=== PATIENT | female | born 2000 | race American Indian/Alaskan Native ===

== ENCOUNTER 2022-03-08 17:05 | Emergency (ER) | payer SELFPAY ==
[2022-03-08 18:44] LABS: Basophils % (Auto) 0.9 % (0.0-1.8); Eosinophils % (Auto) 0.7 % (0.0-4.3); Hemoglobin 12.9 gm/dl (10.1-14.3); Lymphocytes # (Auto) 1.9 K/mm3 (1.2-5.4); Lymphocytes % (Auto) 40.2 % (13.4-35.0); Mean Corpuscular HGB Conc 33 % (30-34); Mean Corpuscular Volume 89 fl (79-97); Monocytes # (Auto) 0.3 K/mm3 (0.0-0.8); Monocytes % (Auto) 6.8 % (0.0-7.3); Platelet Count 257 K/mm3 (140-440); Red Cell Distribution Width 14.7 % (13.2-15.2)
[2022-03-08 18:53] LABS: BUN/Creatinine Ratio 14; Blood Urea Nitrogen 11 mg/dL (7-17); Calcium 9.9 mg/dL (8.4-10.2); Hemolysis Index 5
[2022-03-08] MEDS ORDERED: HALOPERIDOL LACTATE 5 MG/1 ML INJ IM PRN (23:49)
[2022-03-08] MEDS ORDERED: LORazepam 2 MG/ML VIAL IM PRN (23:49)
--- NOTE | 2022-03-08 23:50 | Emergency Department Report ---
ED General Adult HPI - General Chief complaint: Psych Stated complaint: MH/BIPOLAR Time Seen by Provider: 03/08/22 23:47 Source: patient Mode of arrival: Ambulatory Limitations: No Limitations - History of Present Illness Initial comments: The patient was evaluated in the emergency department for symptoms described in the history of present illness. He/she was evaluated in the context of the global COVID-19 pandemic, which necessitated consideration that the patient might be at risk for infection with the virus that causes COVID-19. Institutional protocols and algorithms that pertain to the evaluation of patients at risk for COVID-19 are in a state of rapid change based on information released by regulatory bodies including the CDC and federal and state organizations. These policies and algorithms were followed during the patient's care in the emergency department. Please note that these policies, procedures and recommendations changed on a rapid basis. This is a 21-year-old female who presents to the department today for psychiatric consultation and evaluation. She reports that at the moment, she is not currently homicidal or suicidal, that she is not experiencing hallucinations, and that she denies physical pain. Reportedly, she had made some comments about suicidality or homicidality prior to ER evaluation. As per nursing documentation : PATIENT REPORTS THAT SHE WAS AT WORK WHEN SHE STATES THAT SHE EXPERIENCES A "MANIC" EPISODE WHERE SHE VERBALLY ATTACKED ANOTHER EMPLOYEE AND VANDALIZED WORK FURNITURE. SHE REPORTS THAT NOTHING NOR THE PERSON TRIGGERED THE STATE OF RAGE, THAT IT IS SOMETHING THAT CAME ON AND WENT AWAY. AFTERWARDS ANOTHER EMPLOYEE BROUGHT HER TO THE ER TO SEE THE DOCTOR. PATIENT DID REPORT THAT THIS SAME EPISODE HAPPENED ONE OTHER TIME AND SHE REPORTED THAT SHE BEHAVED IN THIS SAME MANNER. AT THIS TIME SHE DENIES SI/HI. The patient denies acute medical complaints at this time. She denies COVID symptoms at this time -: Sudden Severity scale (0 -10): 0 Consistency: now resolved Improves with: none Worsens with: none Associated Symptoms: denies other symptoms - Related Data Allergies Allergy/AdvReac Type Severity Reaction Status Date / Time No Known Allergies Allergy Verified 03/08/22 17:23 ED Review of Systems ROS: Stated complaint: MH/BIPOLAR Other details as noted in HPI Comment: All other systems reviewed and negative ED Past Medical Hx - Past Medical History Previous Medical History?: No - Surgical History Past Surgical History?: No ED Physical Exam - General Limitations: No Limitations General appearance: alert, in no apparent distress - Head Head exam: Present: atraumatic, normocephalic - Eye Eye exam: Present: normal appearance, EOMI. Absent: nystagmus - ENT ENT exam: Present: normal exam, normal orophraynx, mucous membranes moist, normal external ear exam - Neck Neck exam: Present: normal inspection, full ROM. Absent: tenderness, meningismus - Respiratory Respiratory exam: Present: normal lung sounds bilaterally. Absent: respiratory distress, wheezes, rales, rhonchi, stridor, decreased breath sounds - Cardiovascular Cardiovascular Exam: Present: regular rate, normal rhythm, normal heart sounds. Absent: bradycardia, tachycardia, irregular rhythm, systolic murmur, diastolic murmur, rubs, gallop - GI/Abdominal GI/Abdominal exam: Present: soft. Absent: distended, tenderness, guarding, rebound, rigid, pulsatile mass - Extremities Exam Extremities exam: Present: normal inspection, full ROM, other (2+ pulses noted in the bilateral upper and lower extremities. There is no palpable cord. negative Homans sign. Muscular compartments are soft. The pelvis is stable.). Absent: pedal edema, calf tenderness - Back Exam Back exam: Present: normal inspection. Absent: tenderness, CVA tenderness (R), CVA tenderness (L), paraspinal tenderness, vertebral tenderness - Neurological Exam Neurological exam: Present: alert, oriented X3, normal gait, other (No facial droop. Tongue midline. Extraocular movements intact bilaterally. Facial sensation intact to light touch in V1, V2, V3 distribution bilaterally. 5 and a 5 strength in 4 extremities. Sensation intact to light touch in 4 extremities.). Absent: motor sensory deficit - Psychiatric Psychiatric exam: Present: flat affect - Skin Skin exam: Present: warm, dry, intact, normal color. Absent: rash ED Course Vital Signs 03/08/22 03/08/22 17:18 23:57 Temperature 99.1 F Pulse Rate 86 Respiratory 16 16 Rate Blood Pressure 107/80 [Right] O2 Sat by Pulse 100 100 Oximetry ED Medical Decision Making - Lab Data Result diagrams: 03/08/22 17:51 03/08/22 17:51 Vital Signs 03/08/22 03/08/22 17:18 23:57 Temperature 99.1 F Pulse Rate 86 Respiratory 16 16 Rate Blood Pressure 107/80 [Right] O2 Sat by Pulse 100 100 Oximetry Lab Results 03/08/22 03/08/22 03/08/22 Range/Units 17:51 17:51 17:51 WBC 4.8 (4.5-11.0) K/mm3 RBC 4.40 (3.65-5.03) M/mm3 Hgb 12.9 (10.1-14.3) gm/dl Hct 39.0 (30.3-42.9) % MCV 89 (79-97) fl MCH 29 (28-32) pg MCHC 33 (30-34) % RDW 14.7 (13.2-15.2) % Plt Count 257 (140-440) K/mm3 Lymph % (Auto) 40.2 H (13.4-35.0) % Camp % (Auto) 6.8 (0.0-7.3) % Eos % (Auto) 0.7 (0.0-4.3) % Baso % (Auto) 0.9 (0.0-1.8) % Lymph # (Auto) 1.9 (1.2-5.4) K/mm3 Camp # (Auto) 0.3 (0.0-0.8) K/mm3 Eos # (Auto) 0.0 (0.0-0.4) K/mm3 Baso # (Auto) 0.0 (0.0-0.1) K/mm3 Seg Neutrophils % 51.4 (40.0-70.0) % Seg Neutrophils # 2.5 (1.8-7.7) K/mm3 Sodium 138 (137-145) mmol/L Potassium 4.1 (3.6-5.0) mmol/L Chloride 101.8 (98-107) mmol/L Carbon Dioxide 22 (22-30) mmol/L Anion Gap 18 mmol/L BUN 11 (7-17) mg/dL Creatinine 0.8 (0.6-1.2) mg/dL Estimated GFR > 60 ml/min BUN/Creatinine Ratio 14 % Glucose 84 (65-100) mg/dL Calcium 9.9 (8.4-10.2) mg/dL HCG, Quant (0-4) mIU/mL Urine Color (Yellow) Urine Turbidity (Clear) Urine pH (5.0-7.0) Ur Specific [place] (1.003-1.030) Urine Protein (Negative) mg/dL Urine Glucose (UA) (Negative) mg/dL Urine Ketones (Negative) mg/dL Urine Blood (Negative) Urine Nitrite (Negative) Urine Bilirubin (Negative) Urine Urobilinogen (<2.0) mg/dL Ur Leukocyte Esterase (Negative) Urine WBC (Auto) (0.0-6.0) /HPF Urine RBC (Auto) (0.0-6.0) /HPF U Epithel Cells (Auto) (0-13.0) /HPF Urine Bacteria (Auto) (Negative) /HPF Urine Mucus /HPF Urine HCG, Qual (Negative) Salicylates < 0.3 L (2.8-20.0) mg/dL Urine Opiates Screen Urine Methadone Screen Acetaminophen (10.0-30.0) ug/mL Ur Barbiturates Screen Ur Phencyclidine Scrn Ur Amphetamines Screen U Benzodiazepines Scrn Urine Cocaine Screen U Marijuana (THC) Screen Drugs of Abuse Note 03/08/22 03/08/22 03/08/22 Range/Units 17:51 23:49 23:56 WBC (4.5-11.0) K/mm3 RBC (3.65-5.03) M/mm3 Hgb (10.1-14.3) gm/dl Hct (30.3-42.9) % MCV (79-97) fl MCH (28-32) pg MCHC (30-34) % RDW (13.2-15.2) % Plt Count (140-440) K/mm3 Lymph % (Auto) (13.4-35.0) % Camp % (Auto) (0.0-7.3) % Eos % (Auto) (0.0-4.3) % Baso % (Auto) (0.0-1.8) % Lymph # (Auto) (1.2-5.4) K/mm3 Camp # (Auto) (0.0-0.8) K/mm3 Eos # (Auto) (0.0-0.4) K/mm3 Baso # (Auto) (0.0-0.1) K/mm3 Seg Neutrophils % (40.0-70.0) % Seg Neutrophils # (1.8-7.7) K/mm3 Sodium (137-145) mmol/L Potassium (3.6-5.0) mmol/L Chloride (98-107) mmol/L Carbon Dioxide (22-30) mmol/L Anion Gap mmol/L BUN (7-17) mg/dL Creatinine (0.6-1.2) mg/dL Estimated GFR ml/min BUN/Creatinine Ratio % Glucose (65-100) mg/dL Calcium (8.4-10.2) mg/dL HCG, Quant < 2 (0-4) mIU/mL Urine Color Yellow (Yellow) Urine Turbidity Clear (Clear) Urine pH 6.0 (5.0-7.0) Ur Specific [place] 1.035 H (1.003-1.030) Urine Protein 30 mg/dl (Negative) mg/dL Urine Glucose (UA) Negative (Negative) mg/dL Urine Ketones 25 (Negative) mg/dL Urine Blood Negative (Negative) Urine Nitrite Negative (Negative) Urine Bilirubin Negative (Negative) Urine Urobilinogen 0.0 (<2.0) mg/dL Ur Leukocyte Esterase Negative (Negative) Urine WBC (Auto) 1.0 (0.0-6.0) /HPF Urine RBC (Auto) 4.0 (0.0-6.0) /HPF U Epithel Cells (Auto) 7.0 (0-13.0) /HPF Urine Bacteria (Auto) 1+ (Negative) /HPF Urine Mucus 3+ /HPF Urine HCG, Qual Negative (Negative) Salicylates (2.8-20.0) mg/dL Urine Opiates Screen Urine Methadone Screen Acetaminophen 5.0 L (10.0-30.0) ug/mL Ur Barbiturates Screen Ur Phencyclidine Scrn Ur Amphetamines Screen U Benzodiazepines Scrn Urine Cocaine Screen U Marijuana (THC) Screen Drugs of Abuse Note 03/08/22 Range/Units 23:56 WBC (4.5-11.0) K/mm3 RBC (3.65-5.03) M/mm3 Hgb (10.1-14.3) gm/dl Hct (30.3-42.9) % MCV (79-97) fl MCH (28-32) pg MCHC (30-34) % RDW (13.2-15.2) % Plt Count (140-440) K/mm3 Lymph % (Auto) (13.4-35.0) % Camp % (Auto) (0.0-7.3) % Eos % (Auto) (0.0-4.3) % Baso % (Auto) (0.0-1.8) % Lymph # (Auto) (1.2-5.4) K/mm3 Camp # (Auto) (0.0-0.8) K/mm3 Eos # (Auto) (0.0-0.4) K/mm3 Baso # (Auto) (0.0-0.1) K/mm3 Seg Neutrophils % (40.0-70.0) % Seg Neutrophils # (1.8-7.7) K/mm3 Sodium (137-145) mmol/L Potassium (3.6-5.0) mmol/L Chloride (98-107) mmol/L Carbon Dioxide (22-30) mmol/L Anion Gap mmol/L BUN (7-17) mg/dL Creatinine (0.6-1.2) mg/dL Estimated GFR ml/min BUN/Creatinine Ratio % Glucose (65-100) mg/dL Calcium (8.4-10.2) mg/dL HCG, Quant (0-4) mIU/mL Urine Color (Yellow) Urine Turbidity (Clear) Urine pH (5.0-7.0) Ur Specific [place] (1.003-1.030) Urine Protein (Negative) mg/dL Urine Glucose (UA) (Negative) mg/dL Urine Ketones (Negative) mg/dL Urine Blood (Negative) Urine Nitrite (Negative) Urine Bilirubin (Negative) Urine Urobilinogen (<2.0) mg/dL Ur Leukocyte Esterase (Negative) Urine WBC (Auto) (0.0-6.0) /HPF Urine RBC (Auto) (0.0-6.0) /HPF U Epithel Cells (Auto) (0-13.0) /HPF Urine Bacteria (Auto) (Negative) /HPF Urine Mucus /HPF Urine HCG, Qual (Negative) Salicylates (2.8-20.0) mg/dL Urine Opiates Screen Presumptive negative Urine Methadone Screen Presumptive negative Acetaminophen (10.0-30.0) ug/mL Ur Barbiturates Screen Presumptive negative Ur Phencyclidine Scrn Presumptive negative Ur Amphetamines Screen Presumptive negative U Benzodiazepines Scrn Presumptive negative Urine Cocaine Screen Presumptive negative U Marijuana (THC) Screen Presumptive positive Drugs of Abuse Note Disclamer - Medical Decision Making Differential diagnosis, include but not limited to: Encounter for medical screening examination, encounter for behavioral health screening examination, medical clearance for psychiatric evaluation Assessment and plan: 21-year-old female, who is currently afebrile, with reassuring vital signs, who appears very anxious, and who is not currently homicidal or suicidal. However, homicidality and suicidality as well as nonspecific agitation and aggression are documented prior to my personal evaluation. Have therefore requested mental health evaluation to determine if this patient will benefit from inpatient psychiatric hospitalization. At the moment, it is my pain that she does not meet criteria for 1013 hold. The patient is agreeable to observation in the emergency room, pending psychiatric consultation and evaluation. Her laboratory studies are essentially unremarkable. A COVID swab is pending. The emergency room will follow along as the patient provides a COVID swab. At this point in time, the patient does not appear to have an immediate medical contraindication to psychiatric admission, evaluation, consultation and placement. Should the psychiatric team recommend discharge with outpatient follow-up, I think this plan of care would be reasonable Critical care attestation.: If time is entered above; I have spent that time in minutes in the direct care of this critically ill patient, excluding procedure time. ED Disposition Clinical Impression: Medical clearance for psychiatric admission Disposition: [address] [place] [address] HOSPITAL Is pt being admited?: No Does the pt Need Aspirin: No Condition: Good Referrals: ALEXA NIETO MD [Primary Care Provider] - 3-5 Days
[2022-03-09 00:59] LABS: Bilirubin,Urine Negative (Negative); Blood,Urine Negative (Negative); Color,Urine Yellow (Yellow)
[2022-03-09 01:01] LABS: Bacteria,Urine 1+ /HPF (Negative); Mucus,Urine 3+ /HPF
[2022-03-09 01:02] LABS: Amphetamine Screen,Urine PRESUMPTIVE NEGATIVE; Benzodiazepines Screen,Urine PRESUMPTIVE NEGATIVE; Cannabinoid Screen,Urine PRESUMPTIVE POSITIVE; Cocaine Screen,Urine PRESUMPTIVE NEGATIVE; Methadone Screen,Urine PRESUMPTIVE NEGATIVE; Opiate Screen,Urine PRESUMPTIVE NEGATIVE
[2022-03-09 01:04] LABS: HCG Qualitative,Urine Negative (Negative)
--- NOTE | 2022-03-09 08:51 | Consultation ---
History of Present Illness - Reason for Consult Consult date: 03/09/22 Reason for consult: agitation - History of Present Psychiatric Illness The patient was seen today. She is calm and cooperative. She says she had a manic episode at work yesterday. The patient says "I felt like fuing something up but I didn't." She says her friend called her an uber to come to the hospital. The patient says she has a history of Bipolar. She says she's been off of her meds and states "that's the problem. I need my meds." She says her sleep is up and down. The patient states "but I've had problems sleeping for years." The patient denies SI/HI or hallucinations of any kind. Will restart home medications, and have the patient follow up with outpatient psychiatrist. PAST PSYCHIATRIC HISTORY: Diagnoses: Bipolar Suicide attempts or Self-harm behavior: Denies Prior psychiatric hospitalizations: Denies Substance Abuse history: Denies Previous psychiatric medications tried: Lamictal, prozosin Outpatient treatment: Yes PAST MEDICAL HISTORY: None reported Family Psychiatric History: None reported or documented SOCIAL HISTORY Marital Status: Single Living Arrangements: with mom Employment Status: Employed Access to guns/weapons: Denies Education: high school History of Abuse: Denies Legal History: Denies REVIEW OF SYSTEMS Constitutional: Negative for weight loss ENT: Negative for stridor Respiratory: Negative for cough or hemoptysis All other systems reviewed and are negative MENTAL STATUS EXAMINATION General Appearance and Behavior: Age appropriate, wearing appropriate clothes, cooperative, polite with questioning, calm Cooperation: cooperative Psychomotor Behavior: Psychomotor normal Mood: better Affect and affective range: congruent with stated affect Thought Process: goal directed Thought Content: None Speech: Normal tone and pace Suicidal Ideation: Denies Homicidal Ideation: Denies Hallucination: Denies Delusions: None elicited Impulse Control: Limited Insight and Judgment: Limited Memory: Limited Attention: attentive Orientation: Alert and oriented Diagnoses: Bipolar Disorder Treatment Plan Lammictal 25mg po BID Prazosin 1mg po BID Melatonin 5mg po qhs prn insomnia Sitter: per primary Medical: Per primary Disposition: Do not recommend acute psychiatric inpatient treatment. The chief unit forester to give the patient all necessary resources The patient to follow up with outpatient psych in 7 to 14 days upon discharge Will sign off. Thanks Case staffed by Dr. Navarro Medications and Allergies Allergies Allergy/AdvReac Type Severity Reaction Status Date / Time No Known Allergies Allergy Verified 03/08/22 17:23 Home Medications Medication Instructions Recorded Confirmed Last Taken Type Melatonin [Melatonin 5MG TAB] 5 mg PO DAILY #30 tablet 03/09/22 Unknown Rx Prazosin 1 mg PO BID #60 cap 03/09/22 Unknown Rx lamoTRIgine [LaMICtal] 25 mg PO BID #60 tab 03/09/22 Unknown Rx Active Meds: Active Medications Haloperidol Lactate (Haloperidol Lactate 5 Mg/1 Ml Inj) 5 mg IM Q6HR PRN PRN Reason: Agitation Lorazepam (Lorazepam 2 Mg/Ml Vial) 2 mg IM Q4HR PRN PRN Reason: Agitation Mental Status Exam - Vital signs Last Vital Signs Temp 98.5 F 03/09/22 02:56 Pulse 63 03/09/22 02:56 Resp 16 03/09/22 02:56 BP 99/68 03/09/22 02:56 Pulse Ox 99 03/09/22 02:56 Results Result Diagrams: 03/08/22 17:51 03/08/22 17:51 Abnormal lab results 03/08/22 03/08/22 03/08/22 Range/Units 17:51 17:51 17:51 Lymph % (Auto) 40.2 H (13.4-35.0) % Ur Specific [place] (1.003-1.030) Salicylates < 0.3 L (2.8-20.0) mg/dL Acetaminophen 5.0 L (10.0-30.0) ug/mL 03/08/22 Range/Units 23:56 Lymph % (Auto) (13.4-35.0) % Ur Specific [place] 1.035 H (1.003-1.030) Salicylates (2.8-20.0) mg/dL Acetaminophen (10.0-30.0) ug/mL All other labs normal.
[2022-03-09 10:24] VITALS: BP 109/69
--- NOTE | 2022-03-09 12:07 | Event Note ---
Date: 03/09/22 Patient assessed by me independently. Serum labs and urinalysis results reviewed. Documentation by prior ER provider, nursing staff, and mental health provider reviewed. Vitals this morning are grossly unremarkable. She is comfortable and well-appearing. She is mentating well. She does not appear to be acutely psychotic or responding to any internal stimuli. I informed the patient that her chart was reviewed and her medications were written by the mental health provider. All questions answered by me. Patient stable for discharge to home.
== END 2022-03-09 15:53 | disposition home or self-care (01) ==
LOC: ED 17:05
DX: Z13.30 Encounter for screening examination for mental health and behavioral disorders, unspecified (principal)
CPT/HCPCS: 36415; 80048; 80307; 80320; 81001; 81025; 84702; 85025; 99284; G0480